=== PATIENT | female | born 1960 | race Caucasian/White ===

== ENCOUNTER 2023-06-15 17:56 | Emergency (ER) | payer BC, SELFPAY ==
[2023-06-15 18:00] VITALS: BP 137/70
--- NOTE | 2023-06-15 20:01 | ED.SKININJ ---
HPI-Injury
General
Chief Complaint: Head Injury
Source: patient and spouse
Exam Limitations: none
Time Seen by Provider: 06/15/23 19:41
Nursing documentation reviewed up to this point in time: agreed with
Travel History
Have you had any contact with someone who has COVID-19?: No
Do you have any symptoms of coronavirus? Fever > 100 degrees, chills, cough, shortness of breath, sore throat, loss of taste or smell, muscle aches, or headache?: No
History of Present Illness-Injury
Initial Injury comments:
62-year-old female with history of migraines, on Nurtec, has a bicuspid aortic valve followed by cardiology, [place] 4:30 PM, stumbled on a step and fell forward striking her left forehead on a stone wall. There was no loss of
consciousness. She has a left-sided headache around the site. She denies change in vision. She has a general headache. She denies N/V. She denies neck pain.
She is unsure of her last tetanus immunization.
Past History
Past History
ED Past Medical History: CVA (TIA postcardiac cath March 2023.)
ED Past Surgical History: Orthopedic
Social History
Tobacco: Non-smoker
Alcohol: None
Personal:
Living: with family
Review of Systems
Review of Systems
Allergies reviewed?: Yes
All Other Systems: ROS reviewed and negative except as documented in HPI and ROS
Respiratory: Denies trouble breathing
Cardiac: Denies chest pain or syncope
ABD/GI: Denies abdominal pain, nausea or vomiting
: Denies incontinence
Musculoskeletal: Denies neck pain or back pain
Skin: Reports other (Scraped left forehead)
Neurological: Reports headache; Denies dizzy, weakness or numbness
Phy Exam
Physical Exam
Physical Exam:
GENERAL: No acute distress. A&Ox3.
CONSTITUTIONAL: Afebrile.
Head: Deep clean abrasion, half of a golf ball sized abrasion left forehead
EYES: PERRL, conjunctivae normal
Neck: Supple
ENMT: moist mucus membranes, Pharynx nl, TMs normal
RESPIRATORY: Regular respirations, nonlabored, lungs clear.
CARDIOVASCULAR: Regular rate and rhythm, no murmurs, no rubs.
GI: Soft, nontender, normal BS
MUSCULOSKELETAL: No spinal bony tenderness. Moves with ease. Well perfused.
SKIN: Warm, dry, pink, deep clean abrasion left forehead
PSYCH: Normal mood and affect. Well kept, interactive and appropriate
NEUROLOGIC: Awake, alert and oriented. Cranial nerves II through XII intact. [id number] intact. Ambulates well with steady gait. No focal neurological deficits
Course
Orders/Labs/Results
Orders:
Orders
06/15/23 20:02
Tetanus/Diphth/Acelpertussis [Adacel] 0.5 ml IM .ONCE ONE
06/15/23 20:13
Acetaminophen [Tylenol] 1,000 mg .ROUTE .STK-MED ONE
06/15/23 20:14
Acetaminophen [Tylenol] 1,000 mg PO NOW STA
Vital Signs
Initial and Last Documented VS:
Initial Vital Signs
Temp Pulse Resp BP Pulse Ox
98.0 F 53 16 137/70 98
06/15/23 18:00 06/15/23 18:00 06/15/23 18:00 06/15/23 18:00 06/15/23 18:00
Last Documented Vital Signs
Temp Pulse Resp BP Pulse Ox
98.0 F 87 18 112/72 100
06/15/23 18:00 06/15/23 20:23 06/15/23 20:23 06/15/23 20:23 06/15/23 20:23
MDM/Problems Addressed
Differential Diagnosis Includes:
Contusion, abrasion forehead
Posttraumatic head injury, concussion, brain bleed
MDM/Problems Addressed:
62-year-old female with history of migraines, on Nurtec, has a bicuspid aortic valve followed by cardiology, [place], stumbled on a step and fell forward striking her left forehead on a stone wall. There was no loss of
consciousness. She has a left-sided headache around the site. She denies change in vision. She has a general headache. She denies N/V. She denies neck pain.
She is unsure of her last tetanus immunization.
No history of loss of conscious, no focal neurological deficits, no indication for head CT at this time
Neuro exam is normal
dT updated
Patient ambulated out with normal gait at discharge
*Critical Care Note
Total Time (30-74mins, 75-104mins- exclusive of procedures): Not Applicable
ED Attending Note
-
Portions of this chart may have been created with voice recognition software.� Occasional wrong word or��sound alike� substitutions may have occurred due to the inherent limitations of voice recognition software.
Discharge Plan
Departure
Patient Disposition: Home (Routine Discharge)
Date of Disposition: 06/15/23
Time of Disposition: 19:59
Patient with high blood pressure during this ER visit?: No
Condition: Good
Discharge Problem:
Fall from slip, trip, or stumble, Contusion of forehead, Abrasion of forehead, Acute head injury without loss of consciousness
Instructions: Skin Abrasions, Head Injury in Adults (DC), Contusion (DC)
Referrals:
Cullen Coffey MD [Family Provider] - As needed
Activity Restrictions/Additional Instructions:
As we discussed, seek medical care immediately for vomiting more than twice in 1 hour, confusion or headache that gets worse and worse despite pain medication.
Tylenol 1000 mg up to 3 times a day as needed for headache. After 2 days you may start taking ibuprofen if needed
Cold compress to the swollen area 15 minutes off and on today and tomorrow as needed for swelling.
Interventions
Interventions:
*Risk Screen - Suicide Last Done: 06/15/23 19:37
*Neglect/Abuse Screening Last Done: 06/15/23 19:37
ED- Fall Risk Assessment Last Done: 06/15/23 19:38
*ED COVID-19 Vaccine History Last Done: 06/15/23 18:00
*Nursing Disposition Last Done: 06/15/23 20:23
ED- Neurological Assessment Last Done: 06/15/23 19:37
ED-Skin Assessment Last Done: 06/15/23 19:37
Discharge Date and Time
Discharge Date/Time: 06/15/23 20:23
[2023-06-15] MEDS: ADACEL 0.5 ML IM (20:08)
[2023-06-15] MEDS: TYLENOL 1000 MG PO (20:14)
[2023-06-15 20:23] VITALS: BP 112/72
== END 2023-06-15 20:23 | disposition home or self-care (01) ==
LOC: EMR 17:56
PROVIDERS: EMERGENCY PHYSICIAN Emergency Medicine; FAMILY PHYSICIAN Family Medicine
DX: S00.81XA Abrasion of other part of head, initial encounter (principal); S00.83XA Contusion of other part of head, initial encounter; R51.9 Headache, unspecified; S09.90XA Unspecified injury of head, initial encounter; W10.9XXA Fall (on) (from) unspecified stairs and steps, initial encounter; Q23.1 Congenital insufficiency of aortic valve; Z86.73 Personal history of transient ischemic attack (TIA), and cerebral infarction without residual deficits
CPT/HCPCS: 99283; 90471; 90715